=== PATIENT | male | born 1950 | race Caucasian/White ===

== ENCOUNTER 2019-10-19 11:37 | Inpatient (IN) | payer OTHER, MEDICAID ==
[~2019-10-19] VITALS: Ht 170.2 cm; Wt 75.7 kg
[~2019-10-19 11:37] MED LIST: ASCO500T20 GT; ATEN-41 GT; DIGO125T79 GT; DOCU250C14 GT; HYDR-4272 GT; INSU100V11 SQ; LISI-600 GT; MEMA5TAB GT; POLY17PO4 GT; RIVA20TA GT; TRI48 GT; TYLL650 GT
[2019-10-19 11:39] VITALS: BP_SYST 112
--- NOTE | 2019-10-19 12:22 | NUR ---
Placed in room 05 . Placed on security monitor, blood pressure machine and pulse oximeter. To gown for exam. Side rails up.
--- NOTE | 2019-10-19 12:54 | NUR ---
PATIENT PRESENTS TO THE ER WITH HX OF ABNORMAL LABORATORY VALUES AND FEVER FOR SEVERAL DAYS; NO TRAUMA, NO OTHER REMARKABLE S/S; PATIENT IS BED CONFINED AND IS DIAPERED WITH SALOMON CATHETER, CONTRACTURES, GASTRIC FEEDING TUBE
--- NOTE | 2019-10-19 12:56 | NUR ---
PATIENT TO ER #5 AT 1220 AND ERMD EVALUATION AT 1200
--- NOTE | 2019-10-19 12:57 | NUR ---
PATIENT IS ON VACUUM SYSTEM TESTER AND SAO2
[2019-10-19 12:59] LABS: BASOPHILS # (AUTO) 0.1 K/uL (0.0-0.2); BASOPHILS % (AUTO) 0.4 % (0.0-2.0); EOSINOPHILS % (AUTO) 0.1 % (0.0-4.0); HEMATOCRIT 38.6 % (36-54); HEMOGLOBIN 13.3 g/dL (14.0-18.0); LYMPHOCYTES % (AUTO) 4.4 % (20.5-51.5); MEAN CORPUSCULAR HEMOGLOBIN 32 pg (27-31); MEAN CORPUSCULAR HGB CONC 34 % (32-36); MEAN CORPUSCULAR VOLUME 92 fL (79.0-98.0); MONOCYTES # (AUTO) 1.6 K/uL (0.0-1.0); MONOCYTES % (AUTO) 7.2 % (1.7-9.3); NEUTROPHILS # (AUTO) 19.4 K/uL (1.8-7.7); PLATELET COUNT (AUTO) 349 K/uL (130-430); RED CELL DISTRIBUTION WIDTH 15.8 % (9.0-15.0); WHITE BLOOD COUNT (AUTO) 22.1 K/uL (4.8-10.8)
[2019-10-19 13:09] LABS: BILIRUBIN,URINE 1+ (NEGATIVE); COLOR,URINE YELLOW (YELLOW); GLUCOSE,URINE NEGATIVE (NEGATIVE); KETONES,URINE TRACE (NEGATIVE); NITRITE, URINE NEGATIVE (NEGATIVE); PROTEIN URINE 2+ (NEGATIVE)
[2019-10-19 13:23] LABS: RBC,URINE 20-50 /HPF (0-3)
[2019-10-19 13:24] LABS: BLOOD, URINE 2+ (NEGATIVE)
[2019-10-19 13:24] LABS: CALCIUM 8.8 mg/dL (8.4-11.0); CREATININE 1.16 mg/dL (0.55-1.30); INR 1.2 (0.80-1.20); POTASSIUM 4.7 mmol/L (3.5-5.1); PROTHROMBIN TIME 12.2 SECS (9.5-12.5)
[2019-10-19 13:25] LABS: CLARITY/URINE CLOUDY (CLEAR); LEUKOCYTE ESTERASE ,URINE 2+ (NEGATIVE)
[2019-10-19 13:26] LABS: BACTERIA,URINE MANY /HPF (None Seen); WBC,URINE 50-80 /HPF (0-3)
[2019-10-19 13:27] LABS: MUCUS,URINE 1+ /LPF (None Seen)
--- NOTE | 2019-10-19 13:35 | NUR ---
dr jamil called for admission.
[2019-10-19] MEDS ORDERED: cefTRIAXone 1 GM IVPB PREMIX 50 ML IV ONE (13:45)
[2019-10-19] MEDS ORDERED: ASPIRIN 81 MG TAB.CHEW PO ONE (13:45)
[2019-10-19] MEDS ORDERED: VALP250S3 GT (13:54)
[2019-10-19] MEDS ORDERED: SULF1TAB48 PO (13:54)
[2019-10-19] MEDS ORDERED: MOM GT (13:54)
[2019-10-19] MEDS ORDERED: FAMO20TA8 GT (13:54)
[2019-10-19] MEDS ORDERED: LIP10 PO (13:54)
[2019-10-19] MEDS ORDERED: MEMA10TA GT (13:54)
--- NOTE | 2019-10-19 13:55 | NUR ---
Medication reconciliation completed with information provided by [facility]. Any prior medication reconciliation on file was reviewed and corrected.
[2019-10-19 14:37] LABS: TOTAL BILIRUBIN 1.4 mg/dL (0.0-1.0)
[2019-10-19 14:38] LABS: ALBUMIN 2.7 g/dL (3.4-4.8)
[2019-10-19] MEDS ORDERED: LORazepam 2 MG/ML VIAL IM ONE (15:30)
[2019-10-19] MEDS ORDERED: HALOPERIDOL LACTATE 5 MG/ML VIAL IM ONE (15:30)
--- NOTE | 2019-10-19 15:38 | NUR ---
PATIENT IS UNCHANGED; UNCOOPERATIVE WITH CARE AND REFUSING IV; OTHERWISE REMAINS ASYMPTOMATIC; ADMISSION PENDING
--- NOTE | 2019-10-19 16:26 | NUR ---
IV INSERTED TO RIGHT LOWER LEG #22 SALINE LOCK (PER ERMD FOR LOWER EXT); PATIENT DECLINES ORAL MEDICATION; DISPOSITION PENDING
--- NOTE | 2019-10-19 16:39 | NUR ---
REASSESSMENT; PATIENT PREPARED FOR ADMISSION; PATIENT TO TELE WITH [facility] TRANSPORT; IMPROVED, REPORT AT BESIDE
--- NOTE | 2019-10-19 16:59 | NUR ---
ADMIT NOTE Received pt from ER to the floor with a diagnosis of UTI SEPSIS. Admission process initiated. patient is sleeping at the moment but arousable. patient was given haldol in ed prior to transfer. pizano catheter in situ. patient has contractures on the lpwer extremities and right sided weakness
[2019-10-19 17:29] LABS: NEUTROPHILS % (AUTO) 87.9 % (40.0-70.0)
[2019-10-19 17:56] VITALS: BP_SYST 109
[2019-10-19] MEDS ORDERED: FLU VACC TS2019(65UP)/MF59C/PF 45 MCG/0.5 ML SYRINGE I.M. PRN (18:30)
[2019-10-19 20:08] VITALS: BP_SYST 127
[2019-10-19 23:20] VITALS: BP_SYST 123
--- NOTE | 2019-10-20 02:05 | NUR ---
RECIEVED REPORT @ START OF SHIFT, PATIENT RESTING QUIETLY IN BED WITH EYES CLOSED, EASILY AROUSED,UNSURE OF PATIENTS JAZZY STATUS DUE TO DEEP SLEEP, RESPIRATIONS EVEN AND UNLABORED, ROOM AIR, 22G S/L IN RIGHT LEG, HOB ELEVATED,, G-TUBE CLAMPED F/C DRAINING CLEAR YELLOW URINE,MRSA SWAB DONE AND SENT TO LAB,SR ON TELE MONITOR , SR'S UP X'S, CALL LIGHT WITHIN REACH, BED IN LOW POSITION, WILL CONTINUE TO MONITOR.
[2019-10-20 04:00] VITALS: BP_SYST 124
--- NOTE | 2019-10-20 06:54 | NUR ---
CLOSING NOTE: RESTING QUIETLY ALL SHIFT IN BED WITH EYES CLOSED, EASILY AROUSED, BUT RETURNS TO SLEEP IMMEDIATELY, DENIES PAIN, S/L PATENT IN RIGHT LEG,F/C DRAING NOLBERTO COLORED URINE, WILL CONTINUE TO MONITOR.
--- NOTE | 2019-10-20 07:40 | NUR ---
Opening Note received bedside SBAR report from mini shifter RN, patient resting in bed, respirations even and unlabored on room air, no acute distress noted, educated patient on use of call light and asked to call for assistance, patient verbalized understanding, call light in reach, bed in low and locked position, bed alarm on.
[2019-10-20 08:00] VITALS: BP_SYST 129
--- NOTE | 2019-10-20 09:51 | NUR ---
RN Rounds Patient resting in bed, respirations even and unlabored on room air, no pain noted using FLACC scale, no acute distress noted.
--- NOTE | 2019-10-20 10:59 | NUR ---
Nutrition Update Edwin Scale 18 noted. Pt admitted for sepsis, UTI. Diet: [facility] BMI: 26.2 kg/m2 RD to follow per nutrition care standards.
[2019-10-20 11:12] VITALS: BP_SYST 127
--- NOTE | 2019-10-20 12:18 | NUR ---
Pizano Catheter/Physician Rounds orders to change patients pizano catheter, old pizano catheter removed, 10ml NS removed from pizano catheter balloon, patient tolerated well, attempted to advance new pizano catheter using sterile technique, resistance felt, small amount of blood noted, discontinued insertion of pizano catheter, pizano catheter 16F coude placed by Matthew RICH, sterile technique observed, immediate urine return, pizano catheter secured to right upper thigh with pizano catheter securement device, pizano catheter draining to gravity, Dr. Murray at bedside, informed him of pizano catheter change and that blood was noted, okay per Dr. Murray, no additional orders at this time.
[2019-10-20] MEDS ORDERED: cloNIDine HCL 0.1 MG TABLET PO PRN (12:30)
[2019-10-20] MEDS ORDERED: ACETAMINOPHEN 650 MG/20.3 ML UDC GT PRN (12:30)
[2019-10-20] MEDS ORDERED: HYDROcodone/ACETAMIN 5-325 MG TAB (NORCO/ VICODIN) GT PRN (12:30)
[2019-10-20] MEDS ORDERED: NITROGLYCERIN 0.4 MG TAB.SUBL SL PRN (12:30)
[2019-10-20] MEDS ORDERED: LORazepam 2 MG/ML VIAL IVP PRN ×2 (12:30)
--- NOTE | 2019-10-20 12:59 | NUR ---
Physician Rounds Dr. Estrada at bedside speaking with patient.
[2019-10-20] MEDS: CEFEPIME 1 GM in D5W 50 ML IV SCH (13:52)
[2019-10-20] MEDS: D5/0.45 NS 1,000 ML IV SCH (13:53)
--- NOTE | 2019-10-20 15:18 | NUR ---
RN Rounds patient resting in bed, respirations even and unlabored on room air, no acute distress noted, IV fluids infusing well, pizano catheter draining to gravity.
[2019-10-20 15:37] VITALS: BP_SYST 125
--- NOTE | 2019-10-20 16:52 | NUR ---
vp corporate partnerships patient removed diagnostic cardiac sonographer, RN attempted to fix diagnostic cardiac sonographer, patient refusing, patient states, "get away from me", will reinforce education on importance of cardiac monitoring.
[2019-10-20] MEDS: RIVAROXABAN 10 MG TABLET GT SCH (18:09)
--- NOTE | 2019-10-20 18:58 | NUR ---
Spoke with Physician Spoke with Dr. Murray, informed him that patient is hitting staff and attempting to remove pizano catheter and g-tube, restraint orders received, verified with read back, educated patient on purpose and procedure for use of restraints, soft wrist restraint placed to left wrist, circulation intact, no acute distress noted.
--- NOTE | 2019-10-20 19:25 | NUR ---
Closing Note bedside SBAR report given to receiving RN, patient resting in bed, respirations even and unlabored on room air, no acute distress noted, educated patient on use of call light and asked to call for assistance, patient verbalized understanding, call light in reach, bed in low and locked position, bed alarm on, care endorsed to night baker RN.
[2019-10-20] MEDS ORDERED: VALPROIC ACID ORAL SYRUP 250 MG/5 ML UDC GT SCH (21:00)
[2019-10-20] MEDS ORDERED: QUEtiapine FUMARATE 25 MG TABLET PO SCH (21:00)
[2019-10-20] MEDS: PANTOPRAZOLE SODIUM 40 MG TAB PO SCH (22:21)
[2019-10-20] MEDS: ATORVASTATIN 10 MG TABLET PO SCH (22:22)
[2019-10-20] MEDS: VALPROIC ACID ORAL SYRUP 250 MG/5 ML UDC GT SCH (22:22)
[2019-10-20] MEDS: MEMANTINE HCL 5 MG TABLET GT SCH (22:22)
[2019-10-20] MEDS: QUEtiapine FUMARATE 25 MG TABLET PO SCH (22:24)
[2019-10-20 23:08] VITALS: BP_SYST 127
[2019-10-21] MEDS: CEFEPIME 1 GM in D5W 50 ML IV SCH ×2 (00:26→12:47)
[2019-10-21] MEDS: D5/0.45 NS 1,000 ML IV SCH ×2 (01:32→12:47)
--- NOTE | 2019-10-21 07:23 | NUR ---
Opening Note received bedside SBAR report from fry cook RN, patient resting in bed, respirations even and unlabored on room air, no acute distress noted, educated patient on use of call light and asked to call for assistance, patient verbalized understanding, call light in reach, bed in low and locked position, bed alarm on.
[2019-10-21 08:00] VITALS: BP_SYST 136
[2019-10-21] MEDS: ATENOLOL 25 MG TABLET(TENORMIN) GT SCH (08:30)
[2019-10-21] MEDS: PANTOPRAZOLE SODIUM 40 MG TAB PO SCH ×2 (08:30→21:11)
[2019-10-21] MEDS: VALPROIC ACID ORAL SYRUP 250 MG/5 ML UDC GT SCH ×2 (08:31→21:10)
[2019-10-21] MEDS: ASCORBIC ACID 500 MG TABLET GT SCH (08:31)
[2019-10-21] MEDS: DIGOXIN 0.125 MG TABLET GT SCH (08:31)
[2019-10-21] MEDS: QUEtiapine FUMARATE 25 MG TABLET PO SCH ×2 (08:31→21:12)
[2019-10-21] MEDS ORDERED: FAMOTIDINE 20 MG TABLET GT SCH (09:00)
[2019-10-21] MEDS ORDERED: MILK OF MAGNESIA 30 ML UDC GT PRN (09:00)
--- NOTE | 2019-10-21 09:24 | NUR ---
Critical Lab spoke with Dr. Murray, informed him of critical lab MRSA nares positive, new medication orders received, verified with telephone read back, educated patient on purpose and procedure for contact isolation precautions, patient verbalized understanding, contact isolation precaution sign placed at door.
[2019-10-21 10:11] LABS: BASOPHILS % (AUTO) 0.4 % (0.0-2.0); EOSINOPHILS # (AUTO) 0.1 K/uL (0.0-0.4); EOSINOPHILS % (AUTO) 1.6 % (0.0-4.0); HEMATOCRIT 35.2 % (36-54); HEMOGLOBIN 12.2 g/dL (14.0-18.0); LYMPHOCYTES # (AUTO) 2.3 K/uL (1.0-5.5); LYMPHOCYTES % (AUTO) 28.3 % (20.5-51.5); MEAN CORPUSCULAR HEMOGLOBIN 32 pg (27-31); MEAN CORPUSCULAR HGB CONC 35 % (32-36); MEAN CORPUSCULAR VOLUME 92 fL (79.0-98.0); MONOCYTES # (AUTO) 0.9 K/uL (0.0-1.0); MONOCYTES % (AUTO) 11.4 % (1.7-9.3); NEUTROPHILS # (AUTO) 4.7 K/uL (1.8-7.7); NEUTROPHILS % (AUTO) 58.3 % (40.0-70.0); PLATELET COUNT (AUTO) 383 K/uL (130-430); RED BLOOD CELL COUNT(AUTO) 3.83 MIL/uL (4.2-6.2); RED CELL DISTRIBUTION WIDTH 15.8 % (9.0-15.0)
[2019-10-21 10:22] LABS: WHITE BLOOD COUNT (AUTO) 8.1 K/uL (4.8-10.8)
[2019-10-21 10:35] LABS: ALANINE AMINOTRANSFERASE 29 U/L (12-78); ALBUMIN 2.4 g/dL (3.4-4.8); ANION GAP 4 (5-15); ASPARTATE AMINOTRANSFERASE 19 U/L (10-37); CALCIUM 8.5 mg/dL (8.4-11.0); CHLORIDE 99 mmol/L (98-107); CREATININE 0.73 mg/dL (0.55-1.30); GLUCOSE 138 mg/dL (70-99); POTASSIUM 4.2 mmol/L (3.5-5.1); SODIUM SERUM 132 mmol/L (136-145); THYROID STIMULATING HORMONE 2.88 uIu/mL (0.36-3.74); TOTAL BILIRUBIN 0.9 mg/dL (0.0-1.0); UREA NITROGEN, BLOOD 21 mg/dL (8-21)
[2019-10-21 10:37] LABS: GFR AFRICAN AMERICAN 137 mL/min (>90)
[2019-10-21 11:15] VITALS: BP_SYST 106
--- NOTE | 2019-10-21 11:27 | NUR ---
RN Rounds patient resting in bed, assisted patient to reposition, patient tolerated well, respirations even and unlabored on room air, no acute distress noted, contact isolation precautions in place.
--- NOTE | 2019-10-21 13:05 | NUR ---
Tube Feeding educated patient on purpose and procedure for tube feeding, tube feeding glucerna 1.5 started at 20ml/hr, tube feeding infusing well, HOB elevated 30 degrees, no acute distress noted.
--- NOTE | 2019-10-21 14:12 | NUR ---
Dietitian Recommendations * Recommend continuing Glucerna 1.5 at 40 ml/hr (goal rate), Free Water Flush: 100 ml Q6hr via GT per physician order Provides: 1440 kcal/day, 79 gm protein/day, and 1129 ml free water/day Meets: 63% of lower end of estimated caloric needs and 69% of lower end of estimated protein needs * Recommend CCHO diet for oral gratification per physician LP, RD Please refer to Nutrition Assessment for details. Addendum: 10/21/19 at [address] Amended: Links added.
--- NOTE | 2019-10-21 14:16 | NUR ---
Nutrition Note RD spoke w/ Dr. Murray via phone call at 1400 to inquire about whether he would like for pt to continue on CCHO diet alongside TF for nutrition support -- he stated he would like for pt to continue CCHO diet for oral gratification. RD inquired about RD rec for goal rate of TF (Glucerna 1.5 at 65 ml/hr, Free Water Flush: 200 ml Q6h via GT -- 2340 kcal/day, 129 gm protein/day, and 1984 ml free water/day; meets 103% of lower end of estimated caloric needs and 113% of lower end of estimated protein needs) -- however, physician stated that he would like to see how well pt tolerates goal of 40 ml/hr for now. RD acknowledged. Pt may not be meeting optimal nutritional needs.
[2019-10-21 15:10] VITALS: BP_SYST 118
--- NOTE | 2019-10-21 15:20 | NUR ---
RN Rounds patient resting in bed, respirations even and unlabored on room air, patient denies any pain, tube feeding infusing well at 20ml/hr, IV fluids infusing well, IV site clean, dry, and intact, contact isolation precautions in place.
[2019-10-21] MEDS: RIVAROXABAN 10 MG TABLET GT SCH (17:24)
--- NOTE | 2019-10-21 17:50 | NUR ---
Tube Feeding patient has zero residual from tube feeding, patient tolerating well, advanced tube feeding to 30ml/hr working towards goal rate of 40ml/hr, HOB elevated.
--- NOTE | 2019-10-21 19:24 | NUR ---
Closing Note bedside SBAR report given to receiving RN, patient resting in bed, respirations even and unlabored on room air, no acute distress noted, educated patient on use of call light and asked to call for assistance, patient verbalized understanding, call light in reach, bed in low and locked position, bed alarm on, contact isolation precautions in place, care endorsed to cage shift manager RN.
[2019-10-21] MEDS: MUPIROCIN 2% TOPICAL OINTMENT 22 GM NS SCH (21:11)
[2019-10-21] MEDS: ATORVASTATIN 10 MG TABLET PO SCH (21:11)
[2019-10-21] MEDS: MEMANTINE HCL 5 MG TABLET GT SCH (21:12)
[2019-10-22] MEDS: CEFEPIME 1 GM in D5W 50 ML IV SCH ×2 (01:10→11:55)
[2019-10-22] MEDS: D5/0.45 NS 1,000 ML IV SCH ×2 (01:13→15:07)
--- NOTE | 2019-10-22 01:45 | NUR ---
TRANSFER OF CARE/ROUNDS Received report from LAYLA Arredondo. Patient is resting in bed, eyes closed, breathing evenly and nonlabored. Left wrist restraint in place. GT feeding running, patient is tolerating it well. Bed is locked, armed and at lowest position. Fall/safety/aspiration precautions. Will continue to monitor.
[2019-10-22 02:24] VITALS: BP_SYST 141
--- NOTE | 2019-10-22 03:45 | NUR ---
ROUNDS Patient is resting in bed, eyes closed, breathing evenly and nonlabored on room air. Patient continues to be on left wrist restraint. GT feeding running, patient is tolerating it well. No s/s of distress at this time. No other needs at this time. Fall/safety/aspiration precautions.
--- NOTE | 2019-10-22 05:40 | NUR ---
ROUNDS Patient is resting in bed, eyes closed, breathing evenly and nonlabored on room air. Patient continues to be on left wrist restraint. GT feeding running, patient is tolerating it well. No s/s of distress at this time. No other needs at this time. Fall/safety/aspiration precautions. Will continue to monitor.
--- NOTE | 2019-10-22 06:50 | NUR ---
ROUNDS Patient is resting in bed, eyes closed, breathing evenly and nonlabored on room air. Patient continues to be on left wrist restraint. GT feeding increased to 40mL/hr, patient is tolerating it well. No s/s of distress at this time. No other needs at this time. Fall/safety/aspiration precautions.
--- NOTE | 2019-10-22 07:15 | NUR ---
Opening Note Patient received awake with no signs of distress at this time. Patient is not short of breath and does not complain of pain. Patient forgetful and needs constant reinforcement. Safety precautions enforced. Bed at lowest position.
[2019-10-22 08:00] VITALS: BP_SYST 111
[2019-10-22] MEDS: QUEtiapine FUMARATE 25 MG TABLET PO SCH ×2 (09:06→22:07)
[2019-10-22] MEDS: PANTOPRAZOLE SODIUM 40 MG TAB PO SCH ×2 (09:06→22:08)
[2019-10-22] MEDS: ASCORBIC ACID 500 MG TABLET GT SCH (09:06)
[2019-10-22] MEDS: VALPROIC ACID ORAL SYRUP 250 MG/5 ML UDC GT SCH ×2 (09:07→22:07)
[2019-10-22] MEDS: MUPIROCIN 2% TOPICAL OINTMENT 22 GM NS SCH ×2 (09:07→22:06)
[2019-10-22] MEDS: ATENOLOL 25 MG TABLET(TENORMIN) GT SCH (09:10)
[2019-10-22] MEDS: DIGOXIN 0.125 MG TABLET GT SCH (09:10)
--- NOTE | 2019-10-22 10:05 | NUR ---
RN Rounds Patient resting in bed at this time. Patient in no signs of distress. Patient not in pain. Safety and isolation precautions enforced. Call light in reach.
--- NOTE | 2019-10-22 12:06 | NUR ---
RN Rounds Patient sleeping at this time. Patient in no signs of distress. Safety precautions enforced.
[2019-10-22 12:26] VITALS: BP_SYST 127
--- NOTE | 2019-10-22 14:06 | NUR ---
RN Rounds Patient sleeping at this time with no signs of distress or discomfort. Safety precautions enforced.
--- NOTE | 2019-10-22 16:00 | NUR ---
RN Rounds Patient resting at this time with no signs of distress noted. Patient not in pain. Safety precautions enforced.
--- NOTE | 2019-10-22 16:13 | NUR ---
Discharge Planning: DCP faxed pt referral to [facility] (f [phone] p [phone]) DCP to follow up.
[2019-10-22 17:13] VITALS: BP_SYST 138
[2019-10-22] MEDS: RIVAROXABAN 10 MG TABLET GT SCH (17:17)
--- NOTE | 2019-10-22 18:05 | NUR ---
RN Rounds Patient resting at this time. Tubefeeding changed. Patient in no signs of distress at this time.
--- NOTE | 2019-10-22 18:42 | NUR ---
Second call for Dr. Murray s/w Sosa
--- NOTE | 2019-10-22 19:20 | NUR ---
Closing Note Patient endorsed to warehouse worker 2nd shift RN using SBAR report. Patient in no signs of distress at this time.
[2019-10-22 20:00] VITALS: BP_SYST 135
--- NOTE | 2019-10-22 20:00 | NUR ---
recieved report from day rn @ start of shift, patient verbally abusive, with left hand restraint to help prevent harm to self and others, patient will kick, bite and use foul language when doing care, turned and repositioned q 2 hrs, hob elevated ,tube feeding infusing via gt-tube @ 40 ml/hr, started on mereopen ivpb as ordered, f/c draining clear yellow urine, will continue to monitor for s/s of distress.
[2019-10-22] MEDS: ATORVASTATIN 10 MG TABLET PO SCH (22:07)
[2019-10-22] MEDS: MEMANTINE HCL 5 MG TABLET GT SCH (22:07)
[2019-10-23 00:49] VITALS: BP_SYST 146
[2019-10-23 04:00] VITALS: BP_SYST 133
[2019-10-23] MEDS: MEROPENEM 500 MG in NS 50 ML IV SCH ×4 (05:53→21:09)
[2019-10-23] MEDS: D5/0.45 NS 1,000 ML IV SCH ×2 (06:04→11:57)
[2019-10-23] MEDS ORDERED: MEROPENEM 500 MG VIAL IV ONE (06:44)
--- NOTE | 2019-10-23 08:00 | NUR ---
AM labs: Patient refused am labs.
[2019-10-23 08:30] VITALS: BP_SYST 154
[2019-10-23] MEDS: MUPIROCIN 2% TOPICAL OINTMENT 22 GM NS SCH ×2 (08:59→21:10)
[2019-10-23] MEDS: PANTOPRAZOLE SODIUM 40 MG TAB PO SCH ×2 (09:00→21:10)
[2019-10-23] MEDS: VALPROIC ACID ORAL SYRUP 250 MG/5 ML UDC GT SCH ×2 (09:00→21:10)
[2019-10-23] MEDS: QUEtiapine FUMARATE 25 MG TABLET PO SCH ×2 (09:00→21:10)
[2019-10-23] MEDS: DIGOXIN 0.125 MG TABLET GT SCH (09:00)
[2019-10-23] MEDS: ASCORBIC ACID 500 MG TABLET GT SCH (09:01)
[2019-10-23] MEDS: ATENOLOL 25 MG TABLET(TENORMIN) GT SCH (09:01)
--- NOTE | 2019-10-23 09:04 | NUR ---
AM rounds: Patient is awake, verbally aggressive, expressing foul words. Maintained of contact isolation for mrsa nares, mdro/crop grain or livestock farm manager urine. GT feeding of glucerna 1.5 at 40 ml/hr, no gastric residual noted. Side rails are [padded for seizure precautions. Head of the bed at 35 degrees. Call light within reach.
[2019-10-23 11:02] VITALS: BP_SYST 134
--- NOTE | 2019-10-23 12:23 | NUR ---
Discharge Planning: [facility] (f [phone] p [phone]) per Nena pt will go back to room 220B. Nurse made aware. Addendum: 10/23/19 at 1512 by Kathie Kendrick DP DCP received order for LTAC DCP faxed to Nanda Valdze (f [phone] p [phone]) ADIP to follow up
--- NOTE | 2019-10-23 12:39 | NUR ---
order: Informed Kathie, skill training program coordinator that Dr. Murray wants LTAC eval for the patient.
[2019-10-23 15:34] VITALS: BP_SYST 119
[2019-10-23] MEDS: RIVAROXABAN 10 MG TABLET GT SCH (17:21)
--- NOTE | 2019-10-23 17:46 | NUR ---
Discharge order for LTAC : Patient is accepted at [facility], Dr. Murray wants to discharge the patient to LTAC tomorrow, Nanda santiago [place] is aware.
--- NOTE | 2019-10-23 19:15 | NUR ---
OPENING NOTES Late entry due to patient care. Bedside report received from dayshift nurse. Patient received lying in bed, awake, confused, and verbally aggressive. NO s/s of acute distress noted. Breathing even and unlabored. HOB raised. IVF and Gtube infusing well. IV site is patent, no signs of infiltration or infection noted. Dixon attached, secured, and draining by gravity. Call light with patient. Bed alarm on. Bed is locked and at lowest position. Will continue to monitor.
--- NOTE | 2019-10-23 21:00 | NUR ---
[facility] Scheduled medications administered at this time. Patient angry, verbally aggressive. No signs of discomfort noted. Chest rise and fall even bilaterally. IVF and GTUBE infusing well. All needs met. Bed alarm on. Will continue to monitor.
[2019-10-23] MEDS: ATORVASTATIN 10 MG TABLET PO SCH (21:10)
[2019-10-23] MEDS: MEMANTINE HCL 5 MG TABLET GT SCH (21:11)
--- NOTE | 2019-10-23 23:00 | NUR ---
ROUNDS Patient in bed, awake, no s/s of acute distress noted. Breathing even and unlabored. HOB raised. Bed alarm on. Will continue to monitor.
[2019-10-24] VITALS: BP_SYST 133
--- NOTE | 2019-10-24 01:00 | NUR ---
ROUNDS Patient in bed asleep at this time. No signs of discomfort noted. Chest rise and fall even bilaterally. IVF and tube feeding infusing well. HOB raised. Bed alarm on. Will continue to monitor.
--- NOTE | 2019-10-24 03:00 | NUR ---
ROUNDS Patient in bed asleep at this time. No s/s of acute distress noted. Breathing even and unlabored. HOB raised. IVF and tube feeding infusing well. Bed alarm on. Will continue to monitor.
--- NOTE | 2019-10-24 05:00 | NUR ---
SALOMON/WILSON CARE Patient cleaned at this time by BALL MAKER and RN. Patient is uncooperative and verbally aggressive. IVF and Tube feeding infusing well. All needs met. Will continue to monitor.
[2019-10-24] MEDS: MEROPENEM 500 MG in NS 50 ML IV SCH ×2 (05:02→14:39)
[2019-10-24] MEDS: D5/0.45 NS 1,000 ML IV SCH ×2 (05:02→14:39)
--- NOTE | 2019-10-24 06:33 | NUR ---
CLOSING NOTES Patient in bed sleeping at this time. No s/s of acute distress noted. Breathing even and unlabored. HOB raised. IVF and Tube feeding infusing well. Dixon attached and secured, draining by gravity. Soft wrist restraint attached to left wrist, no signs of injuries noted. All needs met throughout shift. Fall, safety, and isolation precautions maintained throughout shift. Will continue to monitor until patient care is endorsed to oncoming dayshift nurse.
--- NOTE | 2019-10-24 07:15 | NUR ---
OPENING NOTES PT AWAKE. PT CLEAN AND DRY. NO ACUTE DISTRESS NOTED. G-TUBE INTACT AND PATENT. CHECKED PLACEMENT. FEEDING RUNNING ORDERED. TOLERATING WELL. NO ACUTE DISTRESS NOTED. HOB ELEVATED. ALL NEEDS MET. CALL LIGHT IN REACH. FALL AND ASPIRATION PRECAUTIONS IN PLACE. CONTINUE TO MONITOR.
[2019-10-24 08:00] VITALS: BP_SYST 156
[2019-10-24] MEDS: ASCORBIC ACID 500 MG TABLET GT SCH (08:52)
[2019-10-24] MEDS: MUPIROCIN 2% TOPICAL OINTMENT 22 GM NS SCH (08:52)
[2019-10-24] MEDS: PANTOPRAZOLE SODIUM 40 MG TAB PO SCH (08:52)
[2019-10-24] MEDS: ATENOLOL 25 MG TABLET(TENORMIN) GT SCH (08:53)
[2019-10-24] MEDS: QUEtiapine FUMARATE 25 MG TABLET PO SCH (08:53)
[2019-10-24] MEDS: DIGOXIN 0.125 MG TABLET GT SCH (08:54)
[2019-10-24] MEDS: VALPROIC ACID ORAL SYRUP 250 MG/5 ML UDC GT SCH (08:55)
--- NOTE | 2019-10-24 08:55 | NUR ---
ROUTINE MEDS MEDS ADMINISTERED ORDERED PER MD. EDUCATION GIVEN. TOLERATED WELL. NO ACUTE DISTRESS NOTED. ALL NEEDS MET. CALL LIGHT IN REACH. FALL, ASPIRATION, AND ISOLATION PRECAUTIONS IN PLACE. CONTINUE TO MONITOR.
--- NOTE | 2019-10-24 10:55 | NUR ---
ROUNDS PT AWAKE WATCHING TELEVISION IN BED. NONLABORED BREATHING. NO ACUTE DISTRESS NOTED. ALL NEEDS MET. FALL AND ASPIRATION PRECAUTIONS IN PLACE. CALL LIGHT IN REACH. CONTINUE TO MONITOR.
[2019-10-24 11:06] VITALS: BP_SYST 120
--- NOTE | 2019-10-24 12:00 | NUR ---
ROUNDS PT AWAKE WATCHING TELEVISION. HOB ELEVATED. NO ACUTE DISTRESS NOTED. ALL NEEDS MET. CALL LIGHT IN REACH. FALL, ASPIRATION, AND ISOLATION PRECAUTIONS IN PLACE CONTINUE TO MONITOR.
--- NOTE | 2019-10-24 12:50 | NUR ---
SEEN AND EXAMINED BY AT BEDSIDE
--- NOTE | 2019-10-24 13:49 | NUR ---
DC Planning: notified Kassandra, combination operator malachi /José Miguel LTASIM # [phone] : the pt has a discharge order. Malachi requested her call back robert and to give bed assignment /transfer ETA.
[2019-10-24 14:06] VITALS: BP_SYST 149
--- NOTE | 2019-10-24 14:28 | NUR ---
ADI Planning: José Miguel HENSON Bed assignment: Per Kassandra, pt is going to bed 306A, RN to report # [phone]. Please arrange pt transfer before 5 pm otherwise the next receiving time will be after 7 pm. -- [facility] J[facility]son will be arranging the ambulance transfer and notify the RN on duty. Thank you.
--- NOTE | 2019-10-24 14:39 | NUR ---
ROUTINE MEDS ROUTINE MEDS ADMINISTERED ORDERED. EDUCATION GIVEN, TOLERATED WELL. NO ACUTE DISTRESS NOTED. ALL NEEDS MET. CALL LIGHT IN REACH. FALL AND ASPIRATION PRECAUTIONS IN PLACE. CONTINUE TO MONITOR.
--- NOTE | 2019-10-24 14:41 | NUR ---
Transport Arranged: Spoke with Kendall at [facility]. [facility] transport set for 1600 to [facility]. [facility] informed that patient has to be there by 1700.
--- NOTE | 2019-10-24 14:50 | NUR ---
PT REFUSED FLU VACCINE. RISK AND BENEFITS EXPLAINED. OFFERED X3. PT CONTINUED TO REFUSE.
--- NOTE | 2019-10-24 15:00 | NUR ---
[employer]IBLE [employer] CALLED AND SPOKE TO BROTHCATRACHITO FRIEDMAN; [phone]. GAVE CONSENT WITH WITNESS NURSE LAYLA GAMING.
--- NOTE | 2019-10-24 15:30 | NUR ---
GAVE REPORT TO NURSE ILEANA RN FROM [place] FOR TRANSFER.
[2019-10-24 15:31] VITALS: BP_SYST 154
--- NOTE | 2019-10-24 16:00 | NUR ---
PT TRANSFERRED Report given to SOURAV ROBERTSON FROM [facility]- at 1600. Transfer packet with Transfer Orders and Medication Reconciliation form given to EMT with report. Exitcare provided. [facility] ID band removed, replaced with ID band with pt's name and . IV catheter intact and patent. No signs of infiltration. G-tube intact and patent. No signs of redness on surrounding skin. Dixon catheter intact, patent, and draining well. All belongings sent with patient. Patient left floor via gurney escorted by EMT in no distress.
== END 2019-10-24 16:00 | DRG 871 ==
LOC: SED 11:37 → STU 13:55
PROVIDERS: ADMIT Internal Medicine; ATTEND Internal Medicine
DX: A41.9 Sepsis, unspecified organism (principal); R53.2 Functional quadriplegia; N39.0 Urinary tract infection, site not specified; Z16.24 Resistance to multiple antibiotics; I24.9 Acute ischemic heart disease, unspecified; F25.0 Schizoaffective disorder, bipolar type; D64.9 Anemia, unspecified; E11.9 Type 2 diabetes mellitus without complications; I48.0 Paroxysmal atrial fibrillation; M19.90 Unspecified osteoarthritis, unspecified site; I10 Essential (primary) hypertension; F03.90 Unspecified dementia, unspecified severity, without behavioral disturbance, psychotic disturbance, mood disturbance, and anxiety; E78.5 Hyperlipidemia, unspecified; R13.10 Dysphagia, unspecified; Z86.73 Personal history of transient ischemic attack (TIA), and cerebral infarction without residual deficits; Z79.899 Other long term (current) drug therapy
CPT/HCPCS: 36415; 71045; 80053; 80164-TC; 81000-TC; 83605; 83735-TC; 83880; 84443-TC; 84484; 85025; 85610-TC; 85730-TC; 87040-TC; 87081; 87086; 87186-TC; 96365; 96372; 99285; G0378; J0692; J0696; J1630; J2060; J2185; J7060